=== PATIENT | male | born 1955 | race Caucasian/White ===

== ENCOUNTER 2018-10-20 03:49 | Emergency (ER) | payer OTHER ==
[~2018-10-20] VITALS: Ht 182.9 cm; Wt 138.0 kg
[2018-10-20] MEDS ORDERED: GLUCAGON 1 MG ONE (04:14)
[2018-10-20] MEDS ORDERED: GLUCAGON 1 MG SQ ONE (04:30)
--- NOTE | 2018-10-20 04:58 | NUR ---
CALLED RADIOLOGY ABOUT ORDERED IMAGING. THEY REPORT IT WILL NOT GET DONE UNTIL 7AM WHEN THE RADIOLOGIST COMES IN.
--- NOTE | 2018-10-20 05:13 | NUR ---
PT. RECEIVED PIT ORDER BY ERNIE MEDINA. AFTER MED PT. REPORTED FEELING A LITTLE BETTER AFTER THE MED AND STATED HE CAN STILL FEEL SOMETHING MOVING. ERNIE FELDMAN IN TO DISCUSS POC WITH PT. IS ABLE TO DRINK FLUIDS WITHOUT DIFFICULTY. ERNIE FELDMAN DISCUSSED POSSIBILITY OF ESOPHEGEAL ABRASION. PT. STATES "I FEEL COMFORTABLE BEING DISCHARGED BECAUSE I AM DOING FINE NOW." ERNIE FELDMAN AGREEABLE WITH PLAN FOR D/C. PT. WITH NO DISTRESS. VERBALIZED UNDERSTANDING OF ALL D/C INSTRUCTIONS AND VERBALIZED HE WILL COME BACK FOR ANY FURTHER CONCERNS.
[2018-10-20 05:17] VITALS: BP 155/78
== END 2018-10-20 05:19 | disposition home or self-care (01) ==
LOC: ED 05:06
DX: R09.89 Other specified symptoms and signs involving the circulatory and respiratory systems (principal)
CPT/HCPCS: 96372; 99283; J1610